=== PATIENT | male | born 1985 | race Caucasian/White ===

== ENCOUNTER 2017-06-06 21:15 | Emergency (ER) | payer SELFPAY ==
[2017-06-06 21:15] VITALS: BP 156/98; PULSE 105; RESP 15; TEMP 37; O2SAT 100; BMI 26.9
--- NOTE | 2017-06-06 21:39 | ED.VISSUMM ---
- ER Visit Summary Date of Service: 06/06/17 Chief Complaint: Accidental overdose History of Present Illness: The patient is a 32 M to the emergency department after accidental overdose. The patient states that he occasionally will use heroin. He states he has been clean for a while. He states tonight, he snorted heroin. He thinks it was laced with something. He was found with diminished responsiveness. The patient was given 2 mg of intranasal Narcan. He had immediate return to baseline. He denies being suicidal or homicidal. The patient did have a prior overdose where he was down for prolonged period of time. He ended up with compartment syndrome of both lower extremities and fasciotomies. He states that he has been trying to stay clean, but from time to time he will relapse. Physical Examination: Vital signs reviewed General: Well-nourished, well-developed Head: Normocephalic, atraumatic Eyes: Pupils equal and reactive, extraocular muscles intact Neck, supple, no lymphadenopathy Heart: Regular rate and rhythm Respiratory: No distress, clear bilaterally Abdomen: Soft, nontender, nondistended, no peritoneal signs Back: Nontender Extremities: Nontender, no edema, no cords Skin: Normal color no rash Neuro: Alert and oriented, no focal or lateralizing deficits Test Results: [] Emergency Department Course and Treatment: The patient was observed on a principal web developer. He was not hypoxic. He was given Zofran for his mild nausea. As long as the patient requires no further intervention at the 2 hour kely, I do feel that he can safely be discharged. He will be given outpatient resources for drug counseling if he has motivation to follow up. Family is comfortable with this plan. Treatment Plan: [] Disposition: Discharge Impression: 1. Accidental opiate overdose This note was generated with [employer] dictation software. It may contain incorrect words, spelling, and punctuation that were not noted in review of the chart prior to signing ED Disposition - Plan for ED Patient: Chief Complaint: Overdose Instructions: ED Overdose Opiate Referrals: [facility]ox, [facility] [Other]
[2017-06-06] MEDS: Ondansetron ODT 4 MG Tablet PO (21:55)
[2017-06-06 22:58] VITALS: BP 135/81; PULSE 98; RESP 19; O2SAT 100
== END 2017-06-06 22:59 | disposition home or self-care (01) ==
LOC: ED 21:57
PROVIDERS: Emergency Provider Emergency Medicine
DX: T40.1X1A Poisoning by heroin, accidental (unintentional), initial encounter (principal); Y92.9 Unspecified place or not applicable; M79.1 Myalgia; Z72.0 Tobacco use
CPT/HCPCS: 99285; J7030

== ENCOUNTER 2019-12-24 16:27 | Inpatient (IN) | payer SELFPAY ==
[2019-12-24 16:28] VITALS: BP 134/79; PULSE 97; RESP 16; TEMP 35.7; O2SAT 99; BMI 23.7
--- NOTE | 2019-12-24 16:40 | ED.VISSUMM ---
- ER Visit Summary Date of Service: 12/24/19 Chief Complaint: [Request for detox from heroin and fentanyl] History of Present Illness: The patient is a 34 M [presents to the emergency department requesting detox. Patient last used a few hours ago. Patient states that he is on probation and has failed some drug test. He denies any significant complaints at this time. Otherwise has no medical history.] Physical Examination: [HEENT-PERRLA, EOMI. Cranial nerves II through XII grossly intact. TMs clear. Mucous membranes moist. No adenopathy. Cardiovascular-regular rate and rhythm without murmur or ectopy Lungs-clear to auscultation, chest wall stable without crepitus or subcu emphysema Abdomen-normoactive bowel sounds, soft, nontender, no rebound or rigidity, no peritoneal signs. Extremities-intact ?4, normal range of motion, normal pulses, atraumatic] Test Results: [Patient had tox screen as well as alcohol and basic chemistries and CBC ordered results of which are currently pending.] Emergency Department Course and Treatment: [Case was discussed with hospitalist will evaluate patient for admission] Treatment Plan: [Admit for detox from opiates] Disposition: [Admit] Impression: [Detox from opiates Opiate withdrawal] This note was generated with [employer] dictation software. It may contain incorrect words, spelling, and punctuation that were not noted in review of the chart prior to signing ED Disposition - Plan for ED Patient: Referrals: Care Physician,No Primary [Primary Care Provider] -
--- NOTE | 2019-12-24 17:03 | HP.PCM_ITS ---
Problem List (1) Opioid abuse Status: Acute History of Present Illness Date of Admission: 12/24/19 Chief Complaint: Requesting detox from heroin and fentanyl. The patient is a 34 year old M who presents to the emergency room requesting detox from fentanyl and heroin. Patient reports last fentanyl used 2 hours ago. He typically uses IV. He reports he has used heroin and fentanyl for the past 8 years or more. He denies other illicit drug use. He has not been through detox program in the past. States he is under probation for possession of drugs and recently failed drug test. He request note stating he is in the hospital for his public health service officer. He denies current withdrawal symptoms. He is a current pack per day smoker. Denies alcohol use. Denies other past medical history. Past Medical History Allergies No Known Allergies Allergy (Verified 12/24/19 16:30) Home Medications: Ambulatory Orders Medication Instructions Recorded No Known/Unobtainable [No Known 07/21/16 Home Medications] Surgical History: - - Bilateral lower extremity fasciotomy Psychiatric History: No pertinent psych hx Lives: With Family - With his mother Smoking Status: Current every day smoker Tobacco Use: Cigarettes - 1 pack/day Alcohol: None Drugs: Heroin, - - Fentanyl - *Family History Maternal History Items: Hypertension Paternal History Items: - - Denies known paternal medical history including cardiac history. Review of Systems Constitutional: Denies: Chills, Fever, Weight Change HEENT: Denies: Head Aches, Sinus Congestion, Sinus Drainage Cardiovascular: Denies: Chest Pain, Palpitations Respiratory: Denies: Cough, Shortness of breath at rest, Sputum production Gastrointestinal: Denies: Abdominal Pain, Nausea, Vomiting Genitourinary: Denies: Dysuria Musculoskeletal: Denies: Joint Pain, Joint Tenderness Skin: Denies: Rash, Wounds Neurological: Denies: Numbness, Tingling, Focal weakness Psychiatric: Reports: Anxiety Hematologic/ Lymphatic: Denies: Easy Bruising, Easy Bleeding VTE Information - Inpt Only VTE Present on Admission: No VTE Mechan Device Prophylaxis: None VTE Pharm Prophylaxis ordered?: No Reason prophylaxis not ordered:: Treatment Not Indicated - Physical Exam Vitals/I&O's: Vital Signs Temp Pulse Resp BP Pulse Ox 96.2 F L 97 16 134/79 H 99 12/24/19 16:28 12/24/19 16:28 12/24/19 16:28 12/24/19 16:28 12/24/19 16:28 Oxygen Delivery Method Room Air Weight: 170 lb Body Mass Index (BMI) 23.7 General: Alert, Oriented x3, Cooperative HEENT: Atraumatic, PERRLA, EOMI, Normocephalic Neck: Supple, No JVD, Negative Carotid Bruits Lungs: Clear to auscultation, Normal air movement Cardiovascular: Regular rate, No murmurs Abdomen: Bowel Sounds Present, Soft, Non Tender Extremities: No clubbing, No cyanosis, No edema, Capillary Refill Less than 3 Seconds Skin: No rashes, No breakdown Musculoskeletal: No Tenderness to Palpation of Joints or Extremities Neurological: Cranial nerves II-XII grossly intact, Neuro grossly intact Psych/Mental Status: Flat Affect Assessment/Plan All Active Problems Opioid abuse (Acute) 1. Acute opioid withdrawal, chronic opioid dependence-buprenorphine taper. As needed regimen for somatic complaints. Tox screen, CMP, CBC pending. Obtain hepatitis/HIV. [employer] consult. 2. Tobacco dependence-encourage cessation. Nicotine replacement patch. DVT prophylaxis-not indicated, low risk This patient was seen by TERELL Dowling under the supervision of Dr. Ramírez.
[2019-12-24 17:20] VITALS: BMI 23.7
--- NOTE | 2019-12-24 17:27 | NURSING ---
302 WHITE OPIATE DETOX
[2019-12-24 17:40] LABS: Alcohol, Blood (Medical)-Serum < 3.0 mg/dL
[2019-12-24 17:42] LABS: AST(SGOT) 63 U/L (15-37); Absolute Neutrophil Count 8.3 X10^3/uL (2.0-7.7); Alanine Aminotransfer ALT/SGPT 81 U/L (16-61); Albumin, Serum 3.8 g/dL (3.2-5.0); Alkaline Phosphatase 87 U/L (45-117); Anion Gap 6 (5-15); BUN 33 mg/dL (7-18); BUN/Creat Ratio 26.8 RATIO (10-20); Basophil# 0.09 X10^3/uL; Basophil% 0.8 % (0-1); Chloride 104 mmol/L (98-107); Creatinine, Serum 1.23 mg/dL (0.70-1.30); EST Glomerular Filtration Rate 72 mL/min (>60); Eosinophil# 0.75 X10^3/uL; Eosinophils% 6.4 % (0-5); Est Glom Filt Rate - Afr Amer 87 mL/min (>60); Estimated Creatinine Clearance 91.83 ml/min; Globulin 3.7 g/dL (2.2-4.2); Glucose 103 mg/dL (74-106); Hematocrit 36.5 % (40-54); Hemoglobin 12.4 g/dL (13.0-16.5); Lymphocyte % 14.5 % (19-41); Mean Corpuscular Hgb 30.3 pg (27.0-32.0); Mean Corpuscular Volume 89.2 fL (80-94); Mean Platelet Vol. 10.5 fl (6.2-12.0); Monocyte# 0.94 X10^3/uL; NRBC Flagged by Analyzer 0 % (0-5); Neutrophil # 8.25 X10^3/uL (2.7-7.7); Platelet Count 252 K/mm3 (150-450); Potassium 4.1 mmol/L (3.5-5.1); Protein, Total 7.5 g/dL (6.4-8.2); RBC Distribution Width CV 12.8 % (11.6-14.6); RBC Distribution Width SD 41.6 fl (35.1-43.9); Red Blood Count 4.09 M/mm3 (4.6-6.2); Sodium Level 138 mmol/L (136-145); White Blood Count 11.8 K/mm3 (4.4-11.0)
[2019-12-24 17:55] VITALS: BP 120/78; PULSE 100; RESP 16; TEMP 37.1; O2SAT 98
[2019-12-24 18:17] VITALS: BMI 25.1
[2019-12-24 18:23] VITALS: BP 138/77; PULSE 98; RESP 16; TEMP 36.7; O2SAT 100
[2019-12-24 20:21] LABS: HIV - WCH Non-Reactive (Nonreactive)
[2019-12-24 20:35] VITALS: BP 140/83; PULSE 86; RESP 17; TEMP 37.2; O2SAT 100
[2019-12-24 23:38] LABS: Amphetamine Urine VISTA NEGATIVE (<1000 ng/mL); Barbiturate Urine VISTA NEGATIVE (< 200 ng/mL); Benzodiazepine Urine VISTA NEGATIVE (< 200 ng/mL); Cocaine Urine VISTA NEGATIVE (< 300 ng/mL); Ecstacy Urine VISTA NEGATIVE (< 500 ng/mL); Methadone Urine VISTA NEGATIVE (< 300 ng/mL); PCP Urine VISTA NEGATIVE (< 25 ng/mL); THC Urine VISTA NEGATIVE (< 50 ng/mL); Vista UDS pH Range 5
[2019-12-25 02:09] VITALS: BP 136/84; PULSE 88; RESP 18; TEMP 37.2; O2SAT 99
--- NOTE | 2019-12-25 07:31 | PN_ITS ---
Patient Problems: Active and Suspected Problems Opioid abuse (Acute) Reason for Visit: Acute opioid withdrawal Subjective: Patient is a 34-year-old gentleman with history of polysubstance abuse including heroin and fentanyl with acute opioid withdrawal. Objective: GENERAL: cooperative HEENT: Atraumatic; EYES; Anicteric, Normal Conjunctiva NECK; supple, normal thyroid, RESPIRATORY: Diminished to auscultation CARDIOVASCULAR: Regular S1 S2, GI: soft, normoactive bowel sounds, : No Renal angle tenderness; EXTREMITIES: No edema, no clubbing, MUSCULOSKELETAL: no muscle waisting NEURO: Awake; no lateralizing signs. SKIN: No Rash PSYCH; Flat affect Vitals/I&O's: Vital Signs Temp Pulse Resp BP Pulse Ox 98.9 F 88 18 136/84 H 99 12/25/19 02:09 12/25/19 02:09 12/25/19 02:09 12/25/19 02:09 12/25/19 02:09 Oxygen Delivery Method Room Air Weight: 81.647 kg Body Mass Index (BMI) 25.1 Intake and Output for Last 24 Hours 12/23/19 12/24/19 12/25/19 23:59 23:59 23:59 Intake Total 480 / 480 Balance 480 / 480 Laboratory Results 12/24/19 17:20: WBC 11.8 H, RBC 4.09 L, Hgb 12.4 L, Hct 36.5 L, MCV 89.2, MCH 30.3, MCHC 34.0, RDW Std Deviation 41.6, RDW Coeff of Beth 12.8, Plt Count 252, MPV 10.5, Immature Gran % (Auto) 0.300, Neut % (Auto) 70.0, Lymph % (Auto) 14.5 L, [place] % (Auto) 8.0, Eos % (Auto) 6.4 H, Baso % (Auto) 0.8, Absolute Neuts (auto) 8.3 H, Absolute Lymphs (auto) 1.70, Nucleated RBC % 0 12/24/19 17:20: Sodium 138, Potassium 4.1, Chloride 104, Carbon Dioxide 28.0, Anion Gap 6, BUN 33 H, Creatinine 1.23, Estim Creat Clear Calc 91.83, Est GFR (MDRD) Af Amer 87, Est GFR (MDRD) Non-Af 72, BUN/Creatinine Ratio 26.8 H, Glucose 103, Calcium 9.0, Total Bilirubin 0.50, AST 63 H, ALT 81 H, Alkaline Phosphatase 87, Total Protein 7.5, Albumin 3.8, Globulin 3.7, Albumin/Globulin Ratio 1.0 12/24/19 17:20: Ethyl Alcohol < 3.0 12/24/19 18:36: Urine Opiates Screen NEGATIVE, Urine Methadone Screen NEGATIVE, Ur Barbiturates Screen NEGATIVE, Ur Phencyclidine Scrn NEGATIVE, Ur Amphetamines Screen NEGATIVE, U Methamphetamin-MDMA NEGATIVE, U Benzodiazepines Scrn NEGAT QUINTON, Urine Cocaine Screen NEGATIVE, U Cannabinoids Screen NEGATIVE, Ur Drug Screen Comment 12/24/19 19:03: Hepatitis A IgM Ab Pending, Hepatitis A Ab Total Pending, Hep Bs Antigen Pending, Hep B Core Total Ab Pending, Hep B Core IgM Ab Pending 12/24/19 19:03: HIV 1&2 Antibody Non-Reactive Current Medications Buprenorphine HCl (Buprenorphine Hcl 2 Mg Tab.Subl) 4 mg SL Q8H GABBIE; Taper Stop: 12/27/19 18:59 Clonidine (Clonidine Hcl 0.1 Mg Tablet) 0.1 mg PO Q8H PRN PRN PRN Reason: RESTLESSNESS Dicyclomine HCl (Dicyclomine 10 Mg Capsule) 20 mg PO Q6H PRN PRN PRN Reason: Abdominal Discomfort Gabapentin (Gabapentin 300 Mg Capsule) 300 mg PO Q8H PRN PRN PRN Reason: moderate to severe anxiety Hydroxyzine Pamoate (Hydroxyzine Jasmin 25 Mg Capsule) 50 mg PO Q6H PRN PRN PRN Reason: mild anxiety Loperamide HCl (Loperamide 2 Mg Capsule) 2 mg PO Q4H PRN PRN PRN Reason: LOOSE STOOLS Methocarbamol (Methocarbamol 750 Mg Tablet) 1,500 mg PO Q6H PRN PRN PRN Reason: MUSCLE SPASM Ondansetron HCl (Ondansetron 8 Mg Tablet) 8 mg PO Q8H PRN PRN PRN Reason: NAUSEA Trazodone HCl (Trazodone 100 Mg Tablet) 100 mg PO QHS PRN PRN PRN Reason: INSOMNIA Medical Necessity - Tobacco Use Smoking Status: Current every day smoker Tobacco Use: Cigarettes - 1 pack/day Assessment/Plan All Active Problems Opioid abuse (Acute) Patient is a 34-year-old gentleman with history of polysubstance abuse including heroin and fentanyl with acute opioid withdrawal. 1. Acute opioid withdrawal ?Patient admitted to regular nursing floor for medical stabilization using bupropion taper 2. Polysubstance abuse ?Including IV heroin and fentanyl. Counseled on cessation. Patient presented with acute opioid withdrawal management as discussed above 3. Tobacco dependence - Counseled on cessation, offered nicotine patch for tobacco cravings 4. DVT prophylaxis ?Low risk did encourage early ambulation Inpatient E&M: 06150 Subs Hosp L2
[2019-12-25 08:00] VITALS: BP 125/68; PULSE 76; RESP 14; TEMP 36.4; O2SAT 97
[2019-12-25 08:05] VITALS: PULSE 64
--- NOTE | 2019-12-25 10:10 | ADDICTION ---
This literary writer met with patient in his room to conduct ASAM, MSE and DUDIT assessments and to plan for discharge. Patient was alert and oriented and participated appropriately. Patient plans to d/c home, with his mother in [place], [place] and will continue to meet with his primary counselor for non-intensive outpatient treatment. He rejected IOP/Residential recommendations. He did not report a need for transportation upon d/c. All completed documentation is located in client's file and will be faxed to [facility].
--- NOTE | 2019-12-25 10:25 | CASEMGMT ---
Addendum entered by Malissa Slater 12/25/19 10:53: TUAN reviewed chart. Pt requested letter be sent to Repeat Photocomposing Machine Operator. SW in to speak with. Pt confirms he would like a letter sent to his building drafting officer through [facility] [address] stating he is currently at [facility]. Pt states he provided [facility] staff already with fax number. SW reviewed pt's hard copy chart. There is a fax sent to pt's building drafting officer Edd Mcbride stating pt is at [facility]. Original Note: Social Work Note Pt it listed as self-pay. SW in to speak with pt. SW introduced self and role at [facility]. Pt is alert and orientated x3. Pt confirms that he doesn't have insurance, states he used to have Medicaid but is not sure what happened to it. Pt states he works but his employer doesn't offer insurance. SW provided pt with financial resources including Medicaid application, [employer], [facility], RX assistance programs, [facility], and [facility]. Pt denied additional needs or concerns at this time. TUAN placed a call to [facility] and left message for Malissa. Malissa Slater GREASE PACKER, INNER DIAMETER GRINDER TOOL
[2019-12-25 11:58] VITALS: BP 143/76; PULSE 77; RESP 16; TEMP 36.7; O2SAT 100
[2019-12-25] MEDS: cloNIDine HCl 0.1 MG Tablet PO (13:11)
[2019-12-25] MEDS: Buprenorphine HCl 2 MG TAB.SUBL SL ×2 (14:23→22:06)
[2019-12-25 16:57] VITALS: BP 125/53; PULSE 91; RESP 14; TEMP 36.4; O2SAT 100
[2019-12-25 22:00] VITALS: BP 121/65; PULSE 84; RESP 16; TEMP 36.2; O2SAT 98
[2019-12-25] MEDS: traZODone 100 MG Tablet PO (22:08)
[2019-12-26 02:00] VITALS: BP 117/61; PULSE 78; RESP 16; TEMP 36.7; O2SAT 98
[2019-12-26 05:07] LABS: Hepatitis A AB, Total Negative (Negative); Hepatitis A IgM Antibody Negative (Negative); Hepatitis B Core AB IgM Positive (Negative); Hepatitis B Core Ab Total Positive (Negative); Hepatitis C Ab <0.1 s/co ratio (0.0-0.9)
[2019-12-26] MEDS: Buprenorphine HCl 2 MG TAB.SUBL SL ×3 (05:57→21:07)
[2019-12-26 05:58] VITALS: BP 116/57; PULSE 63; RESP 16; TEMP 36; O2SAT 96
[2019-12-26 09:24] VITALS: BP 120/68; PULSE 80; RESP 18; TEMP 36.8; O2SAT 98
--- NOTE | 2019-12-26 09:58 | PN_ITS ---
Patient Problems: Active and Suspected Problems Opioid abuse (Acute) Subjective: Resting, no issues overnight. Vitals/I&O's: Vital Signs Temp Pulse Resp BP Pulse Ox 98.2 F 80 18 120/68 98 12/26/19 09:24 12/26/19 09:24 12/26/19 09:24 12/26/19 09:24 12/26/19 09:24 Oxygen Delivery Method Room Air Weight: 180 lb Body Mass Index (BMI) 25.1 Intake and Output for Last 24 Hours 12/24/19 12/25/19 12/26/19 23:59 23:59 23:59 Intake Total 480 / 480 Balance 480 / 480 General: Alert, Oriented x3, Cooperative, No apparent distress HEENT: Atraumatic, PERRLA, EOMI, Normocephalic Oral: Moist Mucosa Neck: Supple, No JVD Lungs: Clear to auscultation, Normal air movement, No rhonchi, No wheeze, No rales, Diminished Cardiovascular: Regular rate, Regular Rhythm, Normal S1, Normal S2, No murmurs Abdomen: Soft, Non Tender, Non-Distended, No Hepato-splenomegaly Extremities: No edema, Capillary Refill Less than 3 Seconds Skin: No rashes, No breakdown Neurological: Neuro grossly intact, Sensory exam intact to light touch and pain Psych/Mental Status: Normal Affect, Appropriate Current Medications Buprenorphine HCl (Buprenorphine Hcl 2 Mg Tab.Subl) 4 mg SL Q8H GABBIE; Taper Stop: 12/28/19 13:59 Last Admin: 12/26/19 05:57 Dose: 4 mg Documented by: Clonidine (Clonidine Hcl 0.1 Mg Tablet) 0.1 mg PO Q8H PRN PRN PRN Reason: RESTLESSNESS Last Admin: 12/25/19 13:11 Dose: 0.1 mg Documented by: Dicyclomine HCl (Dicyclomine 10 Mg Capsule) 20 mg PO Q6H PRN PRN PRN Reason: Abdominal Discomfort Gabapentin (Gabapentin 300 Mg Capsule) 300 mg PO Q8H PRN PRN PRN Reason: moderate to severe anxiety Hydroxyzine Pamoate (Hydroxyzine Jasmin 25 Mg Capsule) 50 mg PO Q6H PRN PRN PRN Reason: mild anxiety Loperamide HCl (Loperamide 2 Mg Capsule) 2 mg PO Q4H PRN PRN PRN Reason: LOOSE STOOLS Methocarbamol (Methocarbamol 750 Mg Tablet) 1,500 mg PO Q6H PRN PRN PRN Reason: MUSCLE SPASM Nicotine (Nicotine 21 Mg Patch) 21 mg TRANSDERM. DAILY GABBIE Last Admin: 12/26/19 09:25 Dose: 21 mg Documented by: Ondansetron HCl (Ondansetron 8 Mg Tablet) 8 mg PO Q8H PRN PRN PRN Reason: NAUSEA Trazodone HCl (Trazodone 100 Mg Tablet) 100 mg PO QHS PRN PRN PRN Reason: INSOMNIA Last Admin: 12/25/19 22:08 Dose: 100 mg Documented by: STROKE Vital Signs/Narrative: Vital Signs Temp Pulse Resp BP Pulse Ox 12/26/19 09:24 98.2 F 80 18 120/68 98 Medical Necessity - Tobacco Use Smoking Status: Current every day smoker Tobacco Use: Cigarettes Assessment/Plan All Active Problems Opioid abuse (Acute) 1. Acute opiate withdrawal/polysubstance/tobacco abuse -Uses both heroin and fentanyl last use was 2 hours prior to presentation to the hospital -Appetite is panel is pending -Continue with the opiate withdrawal protocol, he does not want 180 he will go home with his mother in [facility] and return to his counselor there. -UDS is normal -Counseled on tobacco cessation DVT: Ambulation Inpatient E&M: 85217 Subs Hosp L2
[2019-12-26 14:21] VITALS: BP 118/68; PULSE 90; RESP 18; TEMP 37.1; O2SAT 99
[2019-12-26 20:59] VITALS: BP 122/63; PULSE 76; RESP 16; TEMP 36.7; O2SAT 97
[2019-12-26] MEDS: traZODone 100 MG Tablet PO (21:12)
--- NOTE | 2019-12-26 22:17 | NURSING ---
Pt's mother Leora called in for update on pt. Pt verbalized that it's ok to given his mother an update. Update given.
[2019-12-27 03:55] VITALS: BP 116/62; PULSE 60; RESP 16; TEMP 36.6; O2SAT 100
[2019-12-27] MEDS: Buprenorphine HCl 2 MG TAB.SUBL SL ×2 (05:26→13:55)
[2019-12-27 08:48] VITALS: BP 118/63; PULSE 75; RESP 16; TEMP 37.1; O2SAT 98
--- NOTE | 2019-12-27 09:54 | PN_ITS ---
Patient Problems: Active and Suspected Problems Opioid abuse (Acute) Subjective: Doing okay, he is willing to stay until tomorrow morning as his last dose of Subutex is on 12/27 at 2 AM Vitals/I&O's: Vital Signs Temp Pulse Resp BP Pulse Ox 98.7 F 75 16 118/63 98 12/27/19 08:48 12/27/19 08:48 12/27/19 08:48 12/27/19 08:48 12/27/19 08:48 Oxygen Delivery Method Room Air Weight: 180 lb Body Mass Index (BMI) 25.1 Intake and Output for Last 24 Hours 12/25/19 12/26/19 12/27/19 23:59 23:59 23:59 Intake Total 480 / 480 Balance 480 / 480 General: Alert, Oriented x3, Cooperative, No apparent distress HEENT: Atraumatic, PERRLA, EOMI, Normocephalic Oral: Moist Mucosa Neck: Supple, No JVD Lungs: Clear to auscultation, Normal air movement, No rhonchi, No wheeze, No rales, Diminished Cardiovascular: Regular rate, Regular Rhythm, Normal S1, Normal S2, No murmurs Abdomen: Soft, Non Tender, Non-Distended, No Hepato-splenomegaly Extremities: No edema, Capillary Refill Less than 3 Seconds Skin: No rashes, No breakdown Neurological: Neuro grossly intact, Sensory exam intact to light touch and pain Current Medications Buprenorphine HCl (Buprenorphine Hcl 2 Mg Tab.Subl) 2 mg SL Q8H GABBIE; Taper Stop: 12/28/19 13:59 Last Admin: 12/27/19 05:26 Dose: 2 mg Documented by: Clonidine (Clonidine Hcl 0.1 Mg Tablet) 0.1 mg PO Q8H PRN PRN PRN Reason: RESTLESSNESS Last Admin: 12/25/19 13:11 Dose: 0.1 mg Documented by: Dicyclomine HCl (Dicyclomine 10 Mg Capsule) 20 mg PO Q6H PRN PRN PRN Reason: Abdominal Discomfort Gabapentin (Gabapentin 300 Mg Capsule) 300 mg PO Q8H PRN PRN PRN Reason: moderate to severe anxiety Hydroxyzine Pamoate (Hydroxyzine Jasmin 25 Mg Capsule) 50 mg PO Q6H PRN PRN PRN Reason: mild anxiety Loperamide HCl (Loperamide 2 Mg Capsule) 2 mg PO Q4H PRN PRN PRN Reason: LOOSE STOOLS Methocarbamol (Methocarbamol 750 Mg Tablet) 1,500 mg PO Q6H PRN PRN PRN Reason: MUSCLE SPASM Nicotine (Nicotine 21 Mg Patch) 21 mg TRANSDERM. DAILY GABBIE Last Admin: 12/27/19 08:45 Dose: 21 mg Documented by: Ondansetron HCl (Ondansetron 8 Mg Tablet) 8 mg PO Q8H PRN PRN PRN Reason: NAUSEA Trazodone HCl (Trazodone 100 Mg Tablet) 100 mg PO QHS PRN PRN PRN Reason: INSOMNIA Last Admin: 12/26/19 21:12 Dose: 100 mg Documented by: STROKE Vital Signs/Narrative: Vital Signs Temp Pulse Resp BP Pulse Ox 12/27/19 08:48 98.7 F 75 16 118/63 98 Medical Necessity - Tobacco Use Smoking Status: Current every day smoker Tobacco Use: Cigarettes Assessment/Plan All Active Problems Opioid abuse (Acute) 1. Acute opiate withdrawal/polysubstance/tobacco abuse -Uses both heroin and fentanyl last use was 2 hours prior to presentation to the hospital -Appetite is panel is pending -Continue with the opiate withdrawal protocol, he does not want 180 he will go home with his mother in [facility] and return to his counselor there. -UDS is normal -Counseled on tobacco cessation DVT: Ambulation Inpatient E&M: 80290 Subs Hosp L2
[2019-12-27 14:00] VITALS: BP 115/57; PULSE 55; RESP 16; TEMP 37.1; O2SAT 100
[2019-12-27 20:25] VITALS: BP 117/63; PULSE 79; RESP 16; TEMP 36.7; O2SAT 98
[2019-12-27] MEDS: traZODone 100 MG Tablet PO (22:25)
[2019-12-28 02:12] VITALS: BP 104/58; PULSE 80; RESP 16; TEMP 36.6; O2SAT 97
[2019-12-28] MEDS: Buprenorphine HCl 2 MG TAB.SUBL SL (02:15)
--- NOTE | 2019-12-28 07:11 | DCINST_ITS ---
- Discharge Diagnoses Current Active Problems: Current Active and Chronic Problems Opioid abuse (Acute) You will use the following diet at home:: Regular Your food should be the consistency of: Regular Your liquids should be the consistency of: Regular/Thin Discharge Activity: Return to Normal Activity Call your doctor if you observe: Fever of 101 or Higher, Shortness of breath, Dizziness, Fainting spells, Swelling in the ankles, Chest pain, Increased palpitations (irregular heartbeat) Allergies/Adverse Reactions: Allergies No Known Allergies Allergy (Verified 12/24/19 16:30) Medications to take at Discharge NK 12/24/19 Primary Care Physician: Care Physician,No Primary [Primary Care Provider] - Please follow up with your Primary Care Physician in: 3-5 days Test Results: Test results from this visit will be discussed in further detail at your follow- up appointment, if applicable. Please Follow Up With: 180 When: As scheduled
[2019-12-28 09:10] VITALS: BP 110/68; PULSE 80; RESP 16; TEMP 36.8; O2SAT 100
--- NOTE | 2019-12-28 10:07 | DS.PCM_ITS ---
Discharge Date and Diagnosis - Problem List Patient Problems: Active and Suspected Problems Opioid abuse (Acute) Date of Admission: 12/24/19 Date of Discharge: 12/28/19 - Primary Discharge Diagnosis Acute Problems: Active Problems Opioid abuse (Acute) Hospital Course and Treatment Operations: None Procedures: None Summary of Care Provided: Per HPI: The patient is a 34 year old M who presents to the emergency room requesting detox from fentanyl and heroin. Patient reports last fentanyl used 2 hours ago. He typically uses IV. He reports he has used heroin and fentanyl for the past 8 years or more. He denies other illicit drug use. He has not been through detox program in the past. States he is under probation for possession of drugs and recently failed drug test. 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 He denies current withdrawal symptoms. He is a current pack per day smoker. Denies alcohol use. Denies other past medical history. Hospital Course: 1. Acute opiate withdrawal/polysubstance abuse/tobacco [id number]-old male presenting for detox from fentanyl and heroin. He last used about 2 hours prior to arrival to the ED. He completed his Subutex taper this morning at 2AM and he is going to go home to [facility] and return to his counselor there. He is feeling well this morning and he actually felt well last night and would have like to go home last night but he is willing to stay to complete his taper and go home in the morning today. Plan for discharge was discussed and he expressed understanding of the risks and benefits of going home today. Patient Problems: Active and Suspected Problems Opioid abuse (Acute) - Physical Exam Vitals/I&O's: Vital Signs Temp Pulse Resp BP Pulse Ox 98.2 F 80 16 110/68 100 12/28/19 09:10 12/28/19 09:10 12/28/19 09:10 12/28/19 09:10 12/28/19 09:10 Oxygen Delivery Method Room Air Weight: 180 lb Body Mass Index (BMI) 25.1 General: Alert, Oriented x3, Cooperative, No apparent distress HEENT: Atraumatic, PERRLA, EOMI, Normocephalic Oral: Moist Mucosa Neck: Supple, No JVD Lungs: Clear to auscultation, Normal air movement, No rhonchi, No wheeze, No rales, Diminished Cardiovascular: Regular rate, Regular Rhythm, Normal S1, Normal S2, No murmurs Abdomen: Soft, Non Tender, Non-Distended, No Hepato-splenomegaly Extremities: No edema, Capillary Refill Less than 3 Seconds Skin: No rashes, No breakdown Neurological: Neuro grossly intact, Sensory exam intact to light touch and pain Discharge Activity: Return to Normal Activity Call your doctor if you observe: Fever of 101 or Higher, Shortness of breath, Dizziness, Fainting spells, Swelling in the ankles, Chest pain, Increased palpitations (irregular heartbeat) Home Medications: Medications to take at Discharge NK 12/24/19 Primary Care Physician: Care Physician,No Primary [Primary Care Provider] - Please follow up with your Primary Care Physician in: 3-5 days Please Follow Up With: 180 When: As scheduled Disposition: Home Minutes spent on discharge:: 20 Patient Condition:: Stable Medical Necessity - Tobacco Use Smoking Status: Current every day smoker Tobacco Use: Cigarettes Meaningful Use Info Meaningful Use Diagnoses (Choose all that apply): None applicable Inpatient E&M: 86424 [facility] Hosp
[2019-12-28 10:36] LABS: HEPATITIS B SURFACE AG Positive (Negative); Hep B Surface Antibodies Non Reactive (.)
== END 2019-12-28 09:20 | disposition home or self-care (01) | DRG 897 ==
LOC: ED 17:07 → MS3 17:45
PROVIDERS: Family Medicine; Admitting Provider Nurse Practitioner Family; Emergency Provider Emergency Medicine; Visit Provider Family Medicine
DX: F11.23 Opioid dependence with withdrawal (principal); K75.9 Inflammatory liver disease, unspecified; F17.210 Nicotine dependence, cigarettes, uncomplicated; Z65.3 Problems related to other legal circumstances; Z82.49 Family history of ischemic heart disease and other diseases of the circulatory system; F19.10 Other psychoactive substance abuse, uncomplicated
CPT/HCPCS: 36415; 80053; 80307; 80320; 85025; 86703; 86704; 86705; 86706; 86708; 86709; 86803; 87340; 99283; 99406; A4216; G0480

== ENCOUNTER 2020-06-13 21:04 | Inpatient (IN) | payer SELFPAY ==
[2020-06-13 21:06] VITALS: BP 127/79; PULSE 77; RESP 18; TEMP 35.7; O2SAT 97; BMI 25.2
--- NOTE | 2020-06-13 22:23 | ED.VIS.GEN ---
History of Present Illness Chief Complaint: Substance Abuse Informant: Patient Narrative: 35-year-old male with history of fentanyl abuse presenting for detox. He states his last use was a couple hours ago. He is unsure how much he uses daily but is a daily user. He denies other drugs or alcohol. He states his last detox was 6 months ago here at [facility]. Patient states he is not having any symptoms right now but knows that he will. He denies any other medical problems. - Past Medical History (1) Opioid abuse Status: Acute Past Medical History - Allergies and Home Meds Allergies/Adverse Reactions: Allergies No Known Allergies Allergy (Verified 06/13/20 21:07) Primary Care Physician: Care Physician,No Primary [Primary Care Provider] - Prior records reviewed: Yes Past Medical History: - - Viewed in problem list Surgical History: - - Bilateral lower extremity fasciotomy Lives: Alone Smoking Status: Unknown if ever smoked Drugs: - - Fentanyl - Family History Maternal Family History: Reports: Hypertension Paternal Family History: Reports: - - Denies known paternal medical history including cardiac history. Review of Systems General: Denies: Chills, Fever, Sweats Eyes: Denies: Visual changes - bilaterally, Diplopia ENT: Denies: Rhinorrhea, Sore throat Cardiovascular: Denies: Chest pain, Palpitations Respiratory: Denies: Dyspnea, Cough, Dyspnea on exertion Gastrointestinal: Denies: Abdominal pain, Nausea, Vomiting, Diarrhea, Melena, Hematochezia Genitourinary: Denies: Dysuria, Hematuria, Frequency Musculoskeletal: Denies: Back pain, Extremity Pain Skin: Denies: Rash, Wounds Neurological: Denies: Headache, Weakness, Numbness Psych: Denies: Depression, Anxiety, Suicidal thoughts, Suicidal ideations, -, - Physical Exam Vital Signs/Narrative: Vital Signs Temp Pulse Resp BP Pulse Ox 06/13/20 21:06 96.3 F L 77 18 127/79 H 97 Inital Vital Signs reviewed: Yes General: Well nourished, No Acute Distress Head: Normocephalic, Atraumatic Eyes: Perrl, EOMI ENT: Moist mucous membranes, No rhinorrhea Cardiovascular: Regular rate, Regular rhythm Respiratory: No distress, CTA bilaterally Abdomen: Soft, Nontender, Nondistended Extremities: Nontender, No edema Skin: Normal color, No rash. Negative for: Cyanosis, Diaphoresis Neurological: Alert, Oriented x3, Cranial nerves II-XII grossly intact Psychological: Normal affect, Normal Mood Diagnostic/Tx/Re-eval Laboratory Data 06/13/20 06/13/20 06/13/20 22:15 22:15 22:15 WBC 11.6 H RBC 4.29 L Hgb 13.2 Hct 38.4 L MCV 89.5 MCH 30.8 MCHC 34.4 RDW Std Deviation 37.6 RDW Coeff of Beth 11.6 Plt Count 231 MPV 10.8 Immature Gran % (Auto) 0.300 Neut % (Auto) 51.9 Lymph % (Auto) 31.8 [place] % (Auto) 7.6 Eos % (Auto) 7.9 H Baso % (Auto) 0.5 Absolute Neuts (auto) 6.0 Absolute Lymphs (auto) 3.70 Nucleated RBC % 0 Sodium 138 Potassium 3.7 Chloride 103 Carbon Dioxide 30.0 Anion Gap 5 BUN 25 H Creatinine 0.82 Estim Creat Clear Calc 136.47 Est GFR (MDRD) Af Amer 139 Est GFR (MDRD) Non-Af 115 BUN/Creatinine Ratio 30.5 H Glucose 149 H Calcium 9.1 Urine Opiates Screen Urine Methadone Screen Ur Barbiturates Screen Ur Phencyclidine Scrn Ur Amphetamines Screen U Methamphetamin-MDMA U Benzodiazepines Scrn Urine Cocaine Screen U Cannabinoids Screen Ur Drug Screen Comment Ethyl Alcohol < 3.0 06/13/20 22:55 WBC RBC Hgb Hct MCV MCH MCHC RDW Std Deviation RDW Coeff of Beth Plt Count MPV Immature Gran % (Auto) Neut % (Auto) Lymph % (Auto) [place] % (Auto) Eos % (Auto) Baso % (Auto) Absolute Neuts (auto) Absolute Lymphs (auto) Nucleated RBC % Sodium Potassium Chloride Carbon Dioxide Anion Gap BUN Creatinine Estim Creat Clear Calc Est GFR (MDRD) Af Amer Est GFR (MDRD) Non-Af BUN/Creatinine Ratio Glucose Calcium Urine Opiates Screen NEGATIVE Urine Methadone Screen NEGATIVE Ur Barbiturates Screen NEGATIVE Ur Phencyclidine Scrn NEGATIVE Ur Amphetamines Screen NEGATIVE U Methamphetamin-MDMA POSITIVE H U Benzodiazepines Scrn NEGATIVE Urine Cocaine Screen NEGATIVE U Cannabinoids Screen NEGATIVE Ur Drug Screen Comment Ethyl Alcohol - Medical Decision Making 35-year-old male presenting for detox from fentanyl. His urine drug screen does show methamphetamine as well. Patient denies any other medical problems. Vital signs are stable he is afebrile. Lab work is unremarkable otherwise. Patient does not have significant symptoms at this time but knows that he will. Discussed with hospitalist who is willing to admit the patient for detox. Impression: 1. Fentanyl abuse 2. Methamphetamine abuse ED Disposition - Plan for ED Patient: Referrals: Care Physician,No Primary [Primary Care Provider] -
[2020-06-13 22:26] LABS: Basophil# 0.06 X10^3/uL; Basophil% 0.5 % (0-1); Eosinophil# 0.92 X10^3/uL; Eosinophils% 7.9 % (0-5); Hematocrit 38.4 % (40-54); Hemoglobin 13.2 g/dL (13.0-16.5); Lymphocyte % 31.8 % (19-41); Mean Corp Hgb Conc 34.4 g/dL (32-36); Mean Corpuscular Hgb 30.8 pg (27.0-32.0); Mean Corpuscular Volume 89.5 fL (80-94); Mean Platelet Vol. 10.8 fl (6.2-12.0); Monocyte# 0.88 X10^3/uL; Monocyte% 7.6 % (0-10); NRBC Flagged by Analyzer 0 % (0-5); Neutrophil # 6.02 X10^3/uL (2.7-7.7); Neutrophil % 51.9 % (47-70); Platelet Count 231 K/mm3 (150-450); RBC Distribution Width CV 11.6 % (11.6-14.6); RBC Distribution Width SD 37.6 fl (35.1-43.9); Red Blood Count 4.29 M/mm3 (4.6-6.2); White Blood Count 11.6 K/mm3 (4.4-11.0)
[2020-06-13 22:36] VITALS: RESP 16
[2020-06-13 22:49] LABS: Alcohol, Blood (Medical)-Serum < 3.0 mg/dL
[2020-06-13 22:56] LABS: Anion Gap 5 (5-15); BUN 25 mg/dL (7-18); BUN/Creat Ratio 30.5 RATIO (10-20); Calcium,Total 9.1 mg/dL (8.5-10.1); Chloride 103 mmol/L (98-107); Creatinine, Serum 0.82 mg/dL (0.70-1.30); EST Glomerular Filtration Rate 115 mL/min (>60); Est Glom Filt Rate - Afr Amer 139 mL/min (>60); Estimated Creatinine Clearance 136.47 ml/min; Glucose 149 mg/dL (74-106); Potassium 3.7 mmol/L (3.5-5.1); Sodium Level 138 mmol/L (136-145)
[2020-06-13 23:16] LABS: Amphetamine Urine VISTA NEGATIVE (<1000 ng/mL); Barbiturate Urine VISTA NEGATIVE (< 200 ng/mL); Benzodiazepine Urine VISTA NEGATIVE (< 200 ng/mL); Cocaine Urine VISTA NEGATIVE (< 300 ng/mL); Ecstacy Urine VISTA POSITIVE (< 500 ng/mL); Methadone Urine VISTA NEGATIVE (< 300 ng/mL); PCP Urine VISTA NEGATIVE (< 25 ng/mL); THC Urine VISTA NEGATIVE (< 50 ng/mL); Vista UDS pH Range 5
--- NOTE | 2020-06-13 23:25 | PCM.HP.STD ---
<Gila Nowak - Last Filed: 06/13/20 23:38> Problem List (1) Desire for detoxification Status: Acute (2) Tobacco abuse Status: Chronic (3) Opioid abuse Status: Chronic History of Present Illness Date of Admission: 06/13/20 Chief Complaint: Desire for detoxification from opiates The patient is a 35 year old M presents today for with a desire to detox from opiates. Patient states that he snorts fentanyl, but is unsure how much as it varies. Patient does have history of IV drug use. Patient states last use was approximately 8 PM today. Tox screen positive for methamphetamines only. Patient also is a daily smoker. patient has no medical history and does not take any prescription medications daily. Patient denies other complaints. Patient reports he was here approximately 6 months ago at which time he completed detox program. Past Medical History Past Medical History (Chronic Problems): Chronic Problems Opioid abuse (Chronic) Tobacco abuse (Chronic) Allergies No Known Allergies Allergy (Verified 06/13/20 21:07) Home Medications: Ambulatory Orders Medication Instructions Recorded NK 12/24/19 Surgical History: - - Bilateral lower extremity fasciotomy Psychiatric History: No pertinent psych hx Lives: Alone Smoking Status: Current every day smoker Tobacco Use: Cigarettes Alcohol: None Drugs: - - Fentanyl - *Family History Maternal History Items: Hypertension Paternal History Items: - - Denies known paternal medical history including cardiac history. Review of Systems Constitutional: Denies: Chills, Fever, Weight Change HEENT: Denies: Head Aches, Sinus Congestion, Sinus Drainage Cardiovascular: Denies: Chest Pain, Palpitations Respiratory: Denies: Cough, Shortness of breath at rest, Sputum production Gastrointestinal: Denies: Abdominal Pain, Nausea, Vomiting Genitourinary: Denies: Dysuria Musculoskeletal: Denies: Joint Pain, Joint Tenderness Skin: Denies: Rash, Wounds Neurological: Denies: Numbness, Tingling, Focal weakness Psychiatric: Denies: Anxiety, Depression, Homicidal Ideations, Suicidal Ideations Hematologic/ Lymphatic: Denies: Easy Bruising, Easy Bleeding VTE Information - Inpt Only VTE Present on Admission: No VTE Mechan Device Prophylaxis: None VTE Pharm Prophylaxis ordered?: No Patient Problems: Active and Suspected Problems Desire for detoxification (Acute) - Physical Exam Vitals/I&O's: Vital Signs Temp Pulse Resp BP Pulse Ox 96.3 F L 77 16 127/79 H 97 06/13/20 21:06 06/13/20 21:06 06/13/20 22:36 06/13/20 21:06 06/13/20 21:06 Oxygen Delivery Method Room Air Weight: 180 lb 15.992 oz Body Mass Index (BMI) 25.2 General: Alert, Oriented x3, Cooperative HEENT: Atraumatic, PERRLA, EOMI, Normocephalic Neck: Supple, No JVD, Negative Carotid Bruits Lungs: Clear to auscultation, Normal air movement Cardiovascular: Regular rate, Regular Rhythm, Normal S1, Normal S2, No murmurs Abdomen: Bowel Sounds Present, Soft, Non Tender Extremities: No edema, Capillary Refill Less than 3 Seconds Skin: No rashes, No breakdown, - - Patient has multiple scabs in various stages of healing all over her body Musculoskeletal: No Tenderness to Palpation of Joints or Extremities Neurological: Cranial nerves II-XII grossly intact Psych/Mental Status: Appropriate, Anxious Laboratory Results 06/13/20 22:15: WBC 11.6 H, RBC 4.29 L, Hgb 13.2, Hct 38.4 L, MCV 89.5, MCH 30.8, MCHC 34.4, RDW Std Deviation 37.6, RDW Coeff of Beth 11.6, Plt Count 231, MPV 10.8, Immature Gran % (Auto) 0.300, Neut % (Auto) 51.9, Lymph % (Auto) 31.8, [place] % (Auto) 7.6, Eos % (Auto) 7.9 H, Baso % (Auto) 0.5, Absolute Neuts (auto) 6.0, Absolute Lymphs (auto) 3.70, Nucleated RBC % 0 06/13/20 22:15: Sodium 138, Potassium 3.7, Chloride 103, Carbon Dioxide 30.0, Anion Gap 5, BUN 25 H, Creatinine 0.82, Estim Creat Clear Calc 136.47, Est GFR (MDRD) Af Amer 139, Est GFR (MDRD) Non-Af 115, BUN/Creatinine Ratio 30.5 H, Glucose 149 H, Calcium 9.1 06/13/20 22:15: Ethyl Alcohol < 3.0 06/13/20 22:55: Urine Opiates Screen NEGATIVE, Urine Methadone Screen NEGATIVE, Ur Barbiturates Screen NEGATIVE, Ur Phencyclidine Scrn NEGATIVE, Ur Amphetamines Screen NEGATIVE, U Methamphetamin-MDMA POSITIVE H, U Benzodiazepines Scrn NEGATIVE, Urine Cocaine Screen NEGATIVE, U Cannabinoids Screen NEGATIVE, Ur Drug Screen Comment Assessment/Plan All Active Problems Desire for detoxification (Acute) 1. Desire for detoxification -To MedSurg as part of ramp program -Buprenorphine taper per protocol -Supportive meds ordered per protocol -Consult [facility] 2. Opiate abuse -See above 3. Tobacco abuse -NicoDerm transdermal patch ordered DVT prophylaxis-not indicated This patient was seen by TERELL Rehman under the supervision of Dr. Hunt. <Jose Hunt - Last Filed: 06/13/20 23:55> History of Present Illness The patient is a 35 year old M [] Past Medical History Allergies No Known Allergies Allergy (Verified 06/13/20 21:07) - Physical Exam Vitals/I&O's: Vital Signs Temp Pulse Resp BP Pulse Ox 96.3 F L 77 16 127/79 H 97 06/13/20 21:06 06/13/20 21:06 06/13/20 22:36 06/13/20 21:06 06/13/20 21:06 Oxygen Delivery Method Room Air Weight: 82.1 kg Body Mass Index (BMI) 25.2 Laboratory Results 06/13/20 22:15: WBC 11.6 H, RBC 4.29 L, Hgb 13.2, Hct 38.4 L, MCV 89.5, MCH 30.8, MCHC 34.4, RDW Std Deviation 37.6, RDW Coeff of Beth 11.6, Plt Count 231, MPV 10.8, Immature Gran % (Auto) 0.300, Neut % (Auto) 51.9, Lymph % (Auto) 31.8, [place] % (Auto) 7.6, Eos % (Auto) 7.9 H, Baso % (Auto) 0.5, Absolute Neuts (auto) 6.0, Absolute Lymphs (auto) 3.70, Nucleated RBC % 0 06/13/20 22:15: Sodium 138, Potassium 3.7, Chloride 103, Carbon Dioxide 30.0, Anion Gap 5, BUN 25 H, Creatinine 0.82, Estim Creat Clear Calc 136.47, Est GFR (MDRD) Af Amer 139, Est GFR (MDRD) Non-Af 115, BUN/Creatinine Ratio 30.5 H, Glucose 149 H, Calcium 9.1 06/13/20 22:15: Ethyl Alcohol < 3.0 06/13/20 22:55: Urine Opiates Screen NEGATIVE, Urine Methadone Screen NEGATIVE, Ur Barbiturates Screen NEGATIVE, Ur Phencyclidine Scrn NEGATIVE, Ur Amphetamines Screen NEGATIVE, U Methamphetamin-MDMA POSITIVE H, U Benzodiazepines Scrn NEGATIVE, Urine Cocaine Screen NEGATIVE, U Cannabinoids Screen NEGATIVE, Ur Drug Screen Comment Assessment/Plan Patient was seen and examined. I agree with Ricardo Nowak, LUTHER-C Patient reports using heroin and fentanyl. He shoots and he snorts. Last use was a couple of hours before presentation. He does not have any abril withdrawal symptoms. However he thinks he is going to begin withdrawal as shown. Alert and oriented x3. Heart sounds S1-S2. Lungs clear to auscultate Extremities no edema. With a needle track arias. Right foot excoriated The patient is a 35 year old M with a significant history of IV drug use ; and tobacco abuse who presents emergency department with seeking opioid detoxification Opioid dependence and desire for detoxification Patient be started on Subutex and other adjunctive medications: Gabapentin as needed; dicyclomine as needed; Vistaril as needed; methocarbamol as needed; clonidine as needed; Imodium as needed; trazodone as needed and Zofran as needed. Monitor COWS and CINA score Tobacco abuse Counseled Nicotine patch prescribed. DVT prophylaxis Low risk Encourage to ambulate Inpatient E&M: 71551 Init Hosp L2
[2020-06-13 23:53] VITALS: BP 127/79; PULSE 77; RESP 16; TEMP 35.7; O2SAT 97
[2020-06-13 23:59] VITALS: BMI 24.5
[2020-06-14] VITALS: BP 129/82; PULSE 67; RESP 16; TEMP 36.8; O2SAT 100
[2020-06-14 00:11] VITALS: BMI 24.5
[2020-06-14 05:58] VITALS: BP 111/62; PULSE 60; RESP 14; TEMP 36.3; O2SAT 99
--- NOTE | 2020-06-14 08:51 | ADDICTION ---
This keno writer / runner met with PT to conduct ASAM, MSE, DUDIT assessments and to plan for d/c. PT A+Ox4 and participated appropriately. All assessments completed, faxed to [facility] and placed in PT's chart on sanchez. PT reports that his mechanical engineering officer in [place], [place] is setting up Residential treatment for him in [place], [place] at [facility]. PT plans to d/c to home and follow his mechanical engineering officer's directives. He plans to contact his PO immediately following d/c from [facility] for guidance. This keno writer / runner provided PT with contact information for AoD agencies in [place] in case his plans to attend [facility] don't work out. PT amiable.
--- NOTE | 2020-06-14 10:03 | CASEMGMT ---
Social Work Note Pt is RAMP pt. Pt is also listed as self-pay. SW met with pt. SW introduced self and role at [facility]. Pt confirms he has no insurance, states he has applied for Medicaid but hasn't received it. SW provided pt with Medicaid Application and number to call Medicaid regarding his application. SW also provided pt with additional financial resources including HCAP application, [facility] information. RX assistance programs, [employer] [facility], and [employer]. Pt denied additional needs or concerns at this time. Malissa Slater BALING MACHINE OPERATOR, RN ICU
--- NOTE | 2020-06-14 10:30 | NURSING ---
Pt's health promotion officer Susan Delvalle called by this nurse per pt request. natural resource officer aware that pt has been admitted to [facility]. Form faxed to Susan stating that pt was admitted per officer's request and with pt's permission.
[2020-06-14 11:21] VITALS: BP 125/64; PULSE 73; RESP 18; TEMP 36.7; O2SAT 99
--- NOTE | 2020-06-14 13:17 | CASEMGMT ---
SW assisted pt in completing Medicaid application, faxed it to S and gave pt the original. ABRAHAM Saenz
--- NOTE | 2020-06-14 13:55 | PCM.PN.HOSP ---
Patient Problems: Active and Suspected Problems Desire for detoxification (Acute) Reason for Visit: Follow-up for acute opioid withdrawal Subjective: Patient was seen and examined. No acute events overnight. No new complaints. Objective: Physical exam: General: Alert, Oriented x3, Cooperative, No apparent distress, Well developed HEENT: Atraumatic Oral: Moist Mucosa Neck: Supple Lungs: Clear to auscultation Cardiovascular: HS I+II, regular, no murmurs Abdomen: Bowel Sounds Present, Soft, Non Tender Extremities: No edema Skin: No rashes, No breakdown Neurological: Grossly intact Psych/Mental Status: Appropriate Vitals/I&O's: Vital Signs Temp Pulse Resp BP Pulse Ox 98.1 F 73 18 125/64 H 99 06/14/20 11:21 06/14/20 11:21 06/14/20 11:06/14/20 11:06/14/20 11:21 Oxygen Delivery Method Room Air Weight: 79.7 kg Body Mass Index (BMI) 24.5 Intake and Output for Last 24 Hours 06/12/20 06/13/20 06/14/20 23:59 23:59 23:59 Intake Total 200 / 200 Balance 200 / 200 Laboratory Results 06/13/20 22:15: WBC 11.6 H, RBC 4.29 L, Hgb 13.2, Hct 38.4 L, MCV 89.5, MCH 30.8, MCHC 34.4, RDW Std Deviation 37.6, RDW Coeff of Beth 11.6, Plt Count 231, MPV 10.8, Immature Gran % (Auto) 0.300, Neut % (Auto) 51.9, Lymph % (Auto) 31.8, [place] % (Auto) 7.6, Eos % (Auto) 7.9 H, Baso % (Auto) 0.5, Absolute Neuts (auto) 6.0, Absolute Lymphs (auto) 3.70, Nucleated RBC % 0 06/13/20 22:15: Sodium 138, Potassium 3.7, Chloride 103, Carbon Dioxide 30.0, Anion Gap 5, BUN 25 H, Creatinine 0.82, Estim Creat Clear Calc 136.47, Est GFR (MDRD) Af Amer 139, Est GFR (MDRD) Non-Af 115, BUN/Creatinine Ratio 30.5 H, Glucose 149 H, Calcium 9.1 06/13/20 22:15: Ethyl Alcohol < 3.0 06/13/20 22:55: Urine Opiates Screen NEGATIVE, Urine Methadone Screen NEGATIVE, Ur Barbiturates Screen NEGATIVE, Ur Phencyclidine Scrn NEGATIVE, Ur Amphetamines Screen NEGATIVE, U Methamphetamin-MDMA POSITIVE H, U Benzodiazepines Scrn NEGATIVE, Urine Cocaine Screen NEGATIVE, U Cannabinoids Screen NEGATIVE, Ur Drug Screen Comment Current Medications Buprenorphine HCl (Buprenorphine Hcl 2 Mg Tab.Subl) 0 mg SL Q8H GABBIE; Taper Stop: 06/16/20 23:57 Clonidine (Clonidine Hcl 0.1 Mg Tablet) 0.1 mg PO Q8H PRN PRN PRN Reason: RESTLESSNESS Dicyclomine HCl (Dicyclomine 10 Mg Capsule) 20 mg PO Q6H PRN PRN PRN Reason: Abdominal Discomfort Gabapentin (Gabapentin 300 Mg Capsule) 300 mg PO Q8H PRN PRN PRN Reason: moderate to severe anxiety Hydroxyzine Pamoate (Hydroxyzine Jasmin 25 Mg Capsule) 50 mg PO Q6H PRN PRN PRN Reason: mild anxiety Loperamide HCl (Loperamide 2 Mg Capsule) 2 mg PO Q4H PRN PRN PRN Reason: LOOSE STOOLS Methocarbamol (Methocarbamol 750 Mg Tablet) 1,500 mg PO Q6H PRN PRN PRN Reason: MUSCLE SPASM Nicotine (Nicotine 21 Mg Patch) 21 mg TD DAILY GABBIE Last Admin: 06/14/20 11:26 Dose: 21 mg Documented by: Ondansetron HCl (Ondansetron 8 Mg Tablet) 8 mg PO Q8H PRN PRN PRN Reason: NAUSEA Trazodone HCl (Trazodone 100 Mg Tablet) 100 mg PO QHS PRN PRN PRN Reason: INSOMNIA STROKE Vital Signs/Narrative: Vital Signs Temp Pulse Resp BP Pulse Ox 06/14/20 11:21 98.1 F 73 18 125/64 H 99 Medical Necessity - Tobacco Use Smoking Status: Current every day smoker Tobacco Use: Cigarettes Assessment/Plan All Active Problems Desire for detoxification (Acute) 1. Acute opioid withdrawal, last COWS score is 0 Continue to monitor on Subutex withdrawal protocol 2. Nicotine dependence, on replacement 3. DVt PPx-low risk; early ambulation recommended Inpatient E&M: 62003 [facility] Hosp L2
[2020-06-14 17:18] VITALS: BP 129/61; PULSE 72; RESP 16; TEMP 36.8; O2SAT 100
[2020-06-14] MEDS: Buprenorphine HCl 2 MG TAB.SUBL SL (18:26)
[2020-06-14 20:20] VITALS: BP 134/76; PULSE 74; RESP 16; TEMP 36.7; O2SAT 99
[2020-06-15 02:16] VITALS: BP 125/77; PULSE 66; RESP 16; TEMP 36.4; O2SAT 100
[2020-06-15] MEDS: Buprenorphine HCl 2 MG TAB.SUBL SL ×3 (02:19→17:18)
[2020-06-15 09:03] VITALS: BP 116/74; PULSE 77; RESP 16; TEMP 36.8; O2SAT 100
--- NOTE | 2020-06-15 13:02 | PCM.PN.HOSP ---
Patient Problems: Active and Suspected Problems Desire for detoxification (Acute) Reason for Visit: Follow-up for acute opioid withdrawal Subjective: Patient was seen and examined. No new complaints. Objective: Physical exam: General: Alert, Oriented x3, Cooperative, No apparent distress, Well developed HEENT: Atraumatic Oral: Moist Mucosa Neck: Supple Lungs: Clear to auscultation Cardiovascular: HS I+II, regular, no murmurs Abdomen: Bowel Sounds Present, Soft, Non Tender Extremities: No edema Skin: No rashes, No breakdown Neurological: Grossly intact Psych/Mental Status: Appropriate Vitals/I&O's: Vital Signs Temp Pulse Resp BP Pulse Ox 98.2 F 77 16 116/74 100 06/15/20 09:03 06/15/20 09:03 06/15/20 09:03 06/15/20 09:03 06/15/20 09:03 Oxygen Delivery Method Room Air Weight: 79.7 kg Body Mass Index (BMI) 24.5 Intake and Output for Last 24 Hours 06/13/20 06/14/20 06/15/20 23:59 23:59 23:59 Intake Total 620 / 1120 500 / 500 Balance 620 / 1120 500 / 500 Current Medications Buprenorphine HCl (Buprenorphine Hcl 2 Mg Tab.Subl) 4 mg SL Q8H GABBIE; Taper Stop: 06/17/20 17:59 Last Admin: 06/15/20 08:57 Dose: 4 mg Documented by: Clonidine (Clonidine Hcl 0.1 Mg Tablet) 0.1 mg PO Q8H PRN PRN PRN Reason: RESTLESSNESS Dicyclomine HCl (Dicyclomine 10 Mg Capsule) 20 mg PO Q6H PRN PRN PRN Reason: Abdominal Discomfort Gabapentin (Gabapentin 300 Mg Capsule) 300 mg PO Q8H PRN PRN PRN Reason: moderate to severe anxiety Hydroxyzine Pamoate (Hydroxyzine Jasmin 25 Mg Capsule) 50 mg PO Q6H PRN PRN PRN Reason: mild anxiety Loperamide HCl (Loperamide 2 Mg Capsule) 2 mg PO Q4H PRN PRN PRN Reason: LOOSE STOOLS Methocarbamol (Methocarbamol 750 Mg Tablet) 1,500 mg PO Q6H PRN PRN PRN Reason: MUSCLE SPASM Nicotine (Nicotine 21 Mg Patch) 21 mg TD DAILY GABBIE Last Admin: 06/15/20 08:55 Dose: 21 mg Documented by: Ondansetron HCl (Ondansetron 8 Mg Tablet) 8 mg PO Q8H PRN PRN PRN Reason: NAUSEA Trazodone HCl (Trazodone 100 Mg Tablet) 100 mg PO QHS PRN PRN PRN Reason: INSOMNIA STROKE Vital Signs/Narrative: Vital Signs Temp Pulse Resp BP Pulse Ox 06/15/20 09:03 98.2 F 77 16 116/74 100 Medical Necessity - Tobacco Use Smoking Status: Current every day smoker Tobacco Use: Cigarettes Assessment/Plan All Active Problems Desire for detoxification (Acute) 1. Acute opioid withdrawal, last COWS score is 2 Continue to monitor on Subutex withdrawal protocol 2. Nicotine dependence, on replacement 3. DVT PPx-low risk; early ambulation recommended Inpatient E&M: 95229 Subs Hosp L2
[2020-06-15] MEDS: hydrOXYzine PAM 25 MG Capsule 50 MG PO (14:12)
[2020-06-15 14:15] VITALS: BP 121/54; PULSE 84; RESP 16; TEMP 36.7; O2SAT 99
[2020-06-15 21:48] VITALS: BP 131/76; PULSE 72; RESP 16; TEMP 36.4; O2SAT 98
[2020-06-15] MEDS: traZODone 100 MG Tablet PO (21:52)
[2020-06-16 02:19] VITALS: BP 111/63; PULSE 72; RESP 16; TEMP 36.6; O2SAT 99
[2020-06-16] MEDS: Buprenorphine HCl 2 MG TAB.SUBL SL ×2 (02:22→10:07)
[2020-06-16 08:53] VITALS: BP 128/56; PULSE 70; RESP 16; TEMP 36.6; O2SAT 100
--- NOTE | 2020-06-16 15:10 | DCINST_ITS ---
- Discharge Diagnoses Current Active Problems: Current Active and Chronic Problems Opioid abuse (Chronic) Tobacco abuse (Chronic) Desire for detoxification (Acute) Reason(s) for Visit for Discharge Instructions: Acute opioid withdrawal You will use the following diet at home:: No restrictions, Regular Your food should be the consistency of: Regular Your liquids should be the consistency of: Regular/Thin Discharge Activity: Return to Normal Activity Additional Instructions: You are strongly advised to continue to avoid use of opioids. You are also advised to stop smoking. Follow-up with your outpatient drug rehab program as scheduled. Allergies/Adverse Reactions: Allergies No Known Allergies Allergy (Verified 06/13/20 21:07) Medications to take at Discharge NK 12/24/19 Primary Care Physician: Care Physician,No Primary [Primary Care Provider] - Please follow up with your Primary Care Physician in: within 1-2 weeks Test Results: Test results from this visit will be discussed in further detail at your follow- up appointment, if applicable. Proposed Discharge Date: 06/16/20
--- NOTE | 2020-06-16 15:15 | DS.PCM_ITS ---
Discharge Date and Diagnosis - Problem List Patient Problems: Active and Suspected Problems Desire for detoxification (Acute) Date of Admission: 06/13/20 Date of Discharge: 06/16/20 - Primary Discharge Diagnosis Acute Problems: Active Problems Acute opioid withdrawal Nicotine dependence - Secondary Discharge Diagnosis Chronic Problems: Chronic Problems Opioid abuse (Chronic) Tobacco abuse (Chronic) Hospital Course and Treatment Operations: None Procedures: None Summary of Care Provided: The patient is a 35 year old M with PMHx of polysubstance abuse, nicotine dependence who presents with request for medical stabilization from acute opioid withdrawal. Patient admits to snorting fentanyl. His urine tox was positive for methamphetamine. He was admitted to the Medr floor and managed on the Subutex withdrawal protocol. Patient continue to improve. He was discharged to follow-up with medical officer psychiatry who is setting up residential treatment for him in [facility]. Patient Problems: Active and Suspected Problems Desire for detoxification (Acute) Subjective: On the day of discharge, patient was seen and examined. Denies any new complaints. Objective: Physical exam: General: Alert, Oriented x3, Cooperative, No apparent distress, Well developed HEENT: Atraumatic Oral: Moist Mucosa Neck: Supple Lungs: Clear to auscultation Cardiovascular: HS I+II, regular, no murmurs Abdomen: Bowel Sounds Present, Soft, Non Tender Extremities: No edema Skin: No rashes, No breakdown Neurological: Grossly intact Psych/Mental Status: Appropriate - Physical Exam Vitals/I&O's: Vital Signs Temp Pulse Resp BP Pulse Ox 97.9 F 70 16 128/56 H 100 06/16/20 08:53 06/16/20 08:53 06/16/20 08:53 06/16/20 08:53 06/16/20 08:53 Oxygen Delivery Method Room Air Weight: 79.7 kg Body Mass Index (BMI) 24.5 Intake and Output for Last 24 Hours 06/14/20 06/15/20 06/16/20 23:59 23:59 23:59 Intake Total 620 / 1120 1850 / 2150 300 / 300 Balance 620 / 1120 1850 / 2150 300 / 300 Current Medications Buprenorphine HCl (Buprenorphine Hcl 2 Mg Tab.Subl) 2 mg SL Q8H GABBIE; Taper Stop: 06/17/20 17:59 Last Admin: 06/16/20 10:07 Dose: 2 mg Documented by: Clonidine (Clonidine Hcl 0.1 Mg Tablet) 0.1 mg PO Q8H PRN PRN PRN Reason: RESTLESSNESS Dicyclomine HCl (Dicyclomine 10 Mg Capsule) 20 mg PO Q6H PRN PRN PRN Reason: Abdominal Discomfort Gabapentin (Gabapentin 300 Mg Capsule) 300 mg PO Q8H PRN PRN PRN Reason: moderate to severe anxiety Hydroxyzine Pamoate (Hydroxyzine Jasmin 25 Mg Capsule) 50 mg PO Q6H PRN PRN PRN Reason: mild anxiety Last Admin: 06/15/20 14:12 Dose: 50 mg Documented by: Loperamide HCl (Loperamide 2 Mg Capsule) 2 mg PO Q4H PRN PRN PRN Reason: LOOSE STOOLS Methocarbamol (Methocarbamol 750 Mg Tablet) 1,500 mg PO Q6H PRN PRN PRN Reason: MUSCLE SPASM Nicotine (Nicotine 21 Mg Patch) 21 mg TD DAILY GABBIE Last Admin: 06/16/20 10:07 Dose: 21 mg Documented by: Ondansetron HCl (Ondansetron 8 Mg Tablet) 8 mg PO Q8H PRN PRN PRN Reason: NAUSEA Trazodone HCl (Trazodone 100 Mg Tablet) 100 mg PO QHS PRN PRN PRN Reason: INSOMNIA Last Admin: 06/15/20 21:52 Dose: 100 mg Documented by: Discharge Diet: Low fat/ Low Cholesterol, 2000 mg Sodium Diet Discharge Activity: Return to Normal Activity Home Medications: Medications to take at Discharge NK 12/24/19 Primary Care Physician: Care Physician,No Primary [Primary Care Provider] - Please follow up with your Primary Care Physician in: within 1-2 weeks Disposition: Home Minutes spent on discharge:: 40 Patient Condition:: Stable Medical Necessity - Tobacco Use Smoking Status: Current every day smoker Tobacco Use: Cigarettes Meaningful Use Info Meaningful Use Diagnoses (Choose all that apply): None applicable Inpatient E&M: 28973 Disch Hosp
--- NOTE | 2020-06-16 15:33 | PHA.DC.MR ---
Pharmacy Service has performed discharge medication reconciliation for this patient. The patient's discharge medication list was reviewed for discrepancies and discrepancies were resolved. Home Medications NK 12/24/19
== END 2020-06-16 15:55 | disposition home or self-care (01) | DRG 897 ==
LOC: ED 22:56 → MS3 06-14 06:07
PROVIDERS: Admitting Provider Hospitalist; Emergency Provider Student in an Organized Health Care Education/Training Program; Visit Provider Internal Medicine
DX: F11.23 Opioid dependence with withdrawal (principal); F15.10 Other stimulant abuse, uncomplicated; F17.210 Nicotine dependence, cigarettes, uncomplicated
CPT/HCPCS: 80048; 80307; 82077; 85025; 99283; 99406; A4216

== ENCOUNTER → 2020-07-04 14:32 | Outpatient (CLI) | payer MEDICAID, SELFPAY ==
[2020-06-13 23:59] VITALS: BMI 24.5
[2020-07-04 18:04] LABS: AST(SGOT) 29 U/L (15-37); Alanine Aminotransfer ALT/SGPT 30 U/L (16-61); Albumin, Serum 4.1 g/dL (3.2-5.0); Alkaline Phosphatase 82 U/L (45-117); Bilirubin, Direct 0.17 mg/dL (0.00-0.30); Globulin 3.2 g/dL (2.2-4.2); Protein, Total 7.3 g/dL (6.4-8.2)
[2020-07-06 12:08] LABS: HEPATITIS B SURFACE AG Negative (Negative); Hepatitis B Core Ab Total Positive (Negative); Hepatitis Be Ab Positive (Negative); Hepatitis Be Ag Negative (Negative)
[2020-07-07 09:59] LABS: AFP, Tumor Marker 2.4 ng/mL (0.0-8.3)
[2020-07-07 10:52] LABS: Hepatitis B Core AB IgM Positive (Negative)
== END ==
PROVIDERS: Referring Provider Internal Medicine Gastroenterology; Visit Provider Internal Medicine Gastroenterology
DX: B18.1 Chronic viral hepatitis B without delta-agent (principal)
CPT/HCPCS: 36415; 80076; 82105; 86705; 86707; 87340; 87350

== ENCOUNTER → 2023-02-15 | Outpatient (CLI) | payer MEDICAID, SELFPAY | END | disposition home or self-care (01) | PROVIDERS: Referring Provider Physician Assistant Surgical; Visit Provider Physician Assistant Surgical | DX: Z20.2 Contact with and (suspected) exposure to infections with a predominantly sexual mode of transmission (principal) | CPT/HCPCS: 87086; 87491; 87591 ==